=== PATIENT | female | born 2000 | race Caucasian/White ===

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

== ENCOUNTER → 2020-12-23 | Outpatient (CLI) | payer OTHER ==
[~2020-12-23] MED LIST changes: +ZOFRAN4 MG PO
== END | disposition home or self-care (01) ==
LOC: CARD 15:59
PROVIDERS: ATTEND Nurse Practitioner
DX: F90.0 Attention-deficit hyperactivity disorder, predominantly inattentive type (principal)